=== PATIENT | female | born 1940 | race Two or more races ===

== ENCOUNTER 2019-07-30 14:47 | Outpatient (CLI) | payer OTHER | END 2019-07-30 15:00 | disposition home or self-care (01) | LOC: TOM 14:47 | PROVIDERS: ATTEND Internal Medicine Gastroenterology | DX: K92.1 Melena (principal); D50.8 Other iron deficiency anemias ==

== ENCOUNTER 2019-08-06 13:45 | Outpatient (CLI) | payer OTHER | END 2019-08-06 13:49 | disposition home or self-care (01) | LOC: RAD 13:45 | PROVIDERS: ATTEND Colon & Rectal Surgery | DX: C18.2 Malignant neoplasm of ascending colon (principal); R59.0 Localized enlarged lymph nodes; K92.1 Melena ==

== ENCOUNTER 2019-08-18 11:15 | Inpatient (IN) | payer OTHER ==
[~2019-08-18] VITALS: Ht 167.6 cm; Wt 79.4 kg
[2019-08-18] MEDS ORDERED: TENORMIN25 MG PO (14:46)
[2019-08-18] MEDS ORDERED: FEOSOL325 MG PO (14:46)
[2019-08-18] MEDS ORDERED: PROTONIX40 M1 PO (14:47)
[2019-08-18] MEDS ORDERED: PAXIL30 MG PO (14:47)
[2019-08-18] MEDS ORDERED: PRAVACHOL PO (14:47)
[2019-08-18] MEDS ORDERED: FOSAMAX70 MG PO (14:49)
[2019-08-18] MEDS ORDERED: ANTIVERT PO (14:50)
[2019-08-18] MEDS ORDERED: PROBIOT PO (14:51)
[2019-08-20] MEDS ORDERED: PROBIOTIC1 EAC2 PO (08:38)
[2019-08-20] MEDS ORDERED: PRAVASTATIN SOD40 MG PO (08:39)
[2019-08-20] MEDS ORDERED: B-121000 MC1 PO (08:40)
[2019-08-20] MEDS ORDERED: VITAMIN C1000 MG PO (08:41)
[2019-08-20] MEDS ORDERED: FENOFIBRATE160 MG PO (08:42)
[2019-08-20] MEDS ORDERED: VITAMIN D325 MC1 PO (08:43)
[2019-08-20] MEDS ORDERED: MECLIZINE HCL12.5 MG (08:45)
[2019-08-20] MEDS ORDERED: ATARAX10 MG (08:49)
[2019-08-20] MEDS ORDERED: TURMERIC 500 M1 EACH (08:50)
[2019-08-20] MEDS ORDERED: [UNRECOGNIZED DRUG - OTHER] PO (08:54)
== END 2019-08-29 18:08 | disposition home or self-care (01) | DRG 329 ==
LOC: SURG 08-20 05:00 → SURH 08-20 05:00 → O/R 08-20 05:00 → SURG 08-20 11:37 → SURH 08-22 16:32 → MEDJ 08-27 21:57
PROVIDERS: ADMIT Colon & Rectal Surgery; ATTEND Colon & Rectal Surgery
PROC: 07BC4ZZ Excision of Pelvis Lymphatic, Percutaneous Endoscopic Approach (ICD-10-PCS; 2019-08-20)
PROC: 4A033R1 Measurement of Arterial Saturation, Peripheral, Percutaneous Approach (ICD-10-PCS; 2019-08-20)
PROC: 4A19X1Z Monitoring of Respiratory Capacity, External Approach (ICD-10-PCS; 2019-08-20)
PROC: 4A12X4Z Monitoring of Cardiac Electrical Activity, External Approach (ICD-10-PCS; 2019-08-20)
PROC: 0DBF4ZZ Excision of Right Large Intestine, Percutaneous Endoscopic Approach (ICD-10-PCS; principal; 2019-08-20 07:00)
PROC: 02HV33Z Insertion of Infusion Device into Superior Vena Cava, Percutaneous Approach (ICD-10-PCS; 2019-08-24)
PROC: CB2YYZZ Tomographic (Tomo) Nuclear Medicine Imaging of Respiratory System using Other Radionuclide (ICD-10-PCS; 2019-08-26)
PROC: 8E0ZXY6 Isolation (ICD-10-PCS; 2019-08-27)
DX: C18.2 Malignant neoplasm of ascending colon (principal); J15.5 Pneumonia due to Escherichia coli; J98.11 Atelectasis; J95.89 Other postprocedural complications and disorders of respiratory system, not elsewhere classified; E78.00 Pure hypercholesterolemia, unspecified; F32.9 Major depressive disorder, single episode, unspecified; R73.01 Impaired fasting glucose; E87.6 Hypokalemia; D50.0 Iron deficiency anemia secondary to blood loss (chronic); Y83.8 Other surgical procedures as the cause of abnormal reaction of the patient, or of later complication, without mention of misadventure at the time of the procedure

== ENCOUNTER 2019-12-03 06:38 | Day surgery (SDC) | payer OTHER ==
[~2019-12-03 06:38] MED LIST: ANTIVERT PO; ATARAX10 MG; B-121000 MC1 PO; FENOFIBRATE160 MG PO; FEOSOL325 MG PO; FOSAMAX70 MG PO; MECLIZINE HCL12.5 MG; OMEPRAZOLE PO; PAXIL30 MG PO; PRAVACHOL PO; PRAVASTATIN SOD40 MG PO; PROBIOT PO; PROBIOTIC1 EAC2 PO; PROTONIX40 M1 PO; TENORMIN PO; TENORMIN25 MG PO; TURMERIC 500 M1 EACH; VITAMIN C1000 MG PO; VITAMIN D325 MC1 PO; [UNRECOGNIZED DRUG - OTHER] PO
== END 2019-12-03 12:35 | disposition home or self-care (01) ==
LOC: CIR.AMB 06:38
PROVIDERS: ATTEND Colon & Rectal Surgery
DX: C20 Malignant neoplasm of rectum (principal); Z20.828 Contact with and (suspected) exposure to other viral communicable diseases
CPT/HCPCS: 36561; C1751